=== PATIENT | male | born 1985 | race Caucasian/White ===

== ENCOUNTER 2025-04-10 20:18 | Emergency (ER) | payer SELFPAY ==
[~2025-04-10] VITALS: Ht 167.6 cm; Wt 140.6 kg
[2025-04-10 20:38] VITALS: BP 143/106; PULSE 105; RESP 16; TEMP 98; O2SAT 93
[2025-04-10 21:52] LABS: BASOPHIL # 0.1 10^3/uL (0.0-0.1); BASOPHIL % 0.5 % (0.2-1.2); EOSINOPHIL # 0.3 10^3/uL (0.0-0.2); EOSINOPHIL % 1.9 % (0.0-5.0); HEMATOCRIT(ML) 43.8 % (37.0-53.0); IG % 0.30 % (0.00-0.50); LYMPHOCYTES # 2.78 10^3/uL1 (1.0-4.8); LYMPHOCYTES % 18.6 % (24.0-44.0); MEAN CORP HGB 32.5 pg (26-34); MEAN CORP HGB CONCENTRATION 32.2 g/dL (33-36.5); MEAN CORP VOLUME 100.9 fL (78-100); MONOCYTES # 1.1 10^3/uL (0.3-0.8); MONOCYTES % 7.6 % (5.0-12.0); NEUTROPHIL # 10.6 10^3/uL (1.8-7.7); NEUTROPHILS % 71.1 % (41.0-85.0); RED BLOOD CELL 4.34 10^6/uL (4.50-5.90); RED CELL DISTRIBUTION WIDTH 12.3 % (11.5-14.5); WHITE BLOOD CELL 15.0 10^3/uL (4.5-11.0)
[2025-04-10 22:08] LABS: ALANINE AMINOTRANSFERASE(ML) 31.0 U/L (12-78); ALBUMIN(ML) 3.8 g/dL (3.4-5.0); CREATININE SERUM 0.89 mg/dL (0.59-1.40); EST GFR, NON-AA 96.2 (>/=60)
[2025-04-10] MEDS ORDERED: TORADOL ONE (22:09)
[2025-04-10] MEDS: TORADOL IV STA (22:11)
[2025-04-10 22:19] LABS: LEUKOCYTE ESTERASE ,URINE NEGATIVE (NEGATIVE); NITRATE,URINE NEGATIVE (NEGATIVE)
[2025-04-10 22:24] LABS: APPEARANCE,URINE CLEAR; UA COLOR YELLOW
[2025-04-10 23:05] VITALS: BP 151/105; PULSE 100; RESP 16; O2SAT 94
[2025-04-10 23:19] VITALS: BP 144/75; PULSE 98; RESP 18; O2SAT 94
== END 2025-04-10 23:33 | disposition home or self-care (01) ==
LOC: ER 20:18
DX: R07.89 Other chest pain (principal); R10.9 Unspecified abdominal pain
CPT/HCPCS: 99285; 74177; 96374; 87086; 71101; 80053; 85025; 36415; 81001; J1885; Q9967; Q9965